=== PATIENT | female | born 1975 | race Caucasian/White ===

== ENCOUNTER 2016-09-27 12:29 | Emergency (ER) | payer MEDICAID ==
[2016-09-27 12:50] VITALS: BP 117/77
== END 2016-09-27 14:01 | disposition left against medical advice (07) ==
LOC: ED 12:29
DX: Z53.21 Procedure and treatment not carried out due to patient leaving prior to being seen by health care provider (principal)

== ENCOUNTER 2017-07-12 23:03 | Emergency (ER) | payer MEDICAID | END 2017-07-12 23:48 | disposition left against medical advice (07) | LOC: ED 23:03 | DX: Z53.21 Procedure and treatment not carried out due to patient leaving prior to being seen by health care provider (principal) ==

== ENCOUNTER 2019-09-01 14:02 | Inpatient (IN) | payer MEDICAID ==
[~2019-09-01] VITALS: Ht 149.9 cm; Wt 42.2 kg
[2019-09-01 14:14] VITALS: Ht 149.9 cm; Wt 42.2 kg
[2019-09-01 17:28] LABS: microscopic required? YES; urine erythrocyte NEGATIVE (NEGATIVE)
[2019-09-01 17:31] LABS: BASOPHIL % 0.4 % (0-2); PLATELET COUNT 268 x10^3mcL (130-400)
[2019-09-01 17:33] LABS: RED CELL DISTRIBUTION WIDTH 15.9 % (11.5-14.5)
[2019-09-01 17:43] LABS: AMPHETAMINE QUAL UR POSITIVE (See below)
[2019-09-01 17:49] LABS: CALCIUM 9.2 mg/dL (8.5-10.1); CARBON DIOXIDE 30.8 mmol/L (21-32); CHLORIDE SERUM 105 mmol/L (98-107); CREATININE SERUM 0.7 mg/dL (0.6-1.0); GFR1 > 60 mL/min; GLUCOSE SERUM 98 mg/dL (74-106); POTASSIUM SERUM 3.9 mmol/L (3.5-5.1); SODIUM SERUM 141 mmol/L (136-145)
[2019-09-01 17:53] LABS: ALBUMIN 4.1 g/dL (3.4-5.0); ALKALINE PHOSPHATASE 44 U/L (46-116); ALT/SGPT 21 U/L (14-59); AST/SGOT 15 U/L (15-37); BILIRUBIN TOTAL 0.72 mg/dL (0.20-1.00); LIPASE 134 IU/L (73-393); TOTAL PROTEIN, SERUM 7.7 g/dL (6.4-8.2)
[2019-09-01 20:21] LABS: CHOLESTEROL/HDL RATIO 2.1; MAGNESIUM 2.1 mg/dL (1.8-2.4); PHOSPHOROUS 3.8 mg/dL (2.5-4.9)
[2019-09-01 20:30] LABS: FREE T4 1.15 ng/dL (0.76-1.46); FREE THYROXINE INDEX 2.8 ug/dL (1.4-4.5); T4(THYROXINE) 7.7 ug/dL (4.7-13.3)
[2019-09-01 20:32] LABS: T3 TOTAL 1.14 ng/mL
[2019-09-01 21:54] VITALS: BP 109/74
[2019-09-02 05:14] VITALS: BP 90/72
[2019-09-02 06:40] LABS: BASOPHIL % 0.2 % (0-2); PLATELET COUNT 212 x10^3mcL (130-400)
[2019-09-02 06:47] LABS: CALCIUM 7.6 mg/dL (8.5-10.1); CARBON DIOXIDE 25.1 mmol/L (21-32); CHLORIDE SERUM 108 mmol/L (98-107); CREATININE SERUM 0.7 mg/dL (0.6-1.0); GFR1 > 60 mL/min; GLUCOSE SERUM 74 mg/dL (74-106); MAGNESIUM 2.2 mg/dL (1.8-2.4); PHOSPHOROUS 2.8 mg/dL (2.5-4.9); SODIUM SERUM 140 mmol/L (136-145)
[2019-09-02 07:34] LABS: RED CELL DISTRIBUTION WIDTH 16.4 % (11.5-14.5)
[2019-09-02 08:22] VITALS: BP 108/45
[2019-09-02 12:02] VITALS: BP 95/48
[2019-09-02] MEDS ORDERED: MIRALAX17 GM PO (14:38)
[2019-09-02 14:41] VITALS: BP 95/48
== END 2019-09-02 15:11 | disposition home or self-care (01) | DRG 247 ==
LOC: ED 14:02 → MU 20:00
PROVIDERS: Emergency Medicine; ADMIT Internal Medicine
DX: K56.600 Partial intestinal obstruction, unspecified as to cause (principal); F12.10 Cannabis abuse, uncomplicated; F15.10 Other stimulant abuse, uncomplicated; F17.290 Nicotine dependence, other tobacco product, uncomplicated; Z68.1 Body mass index [BMI] 19.9 or less, adult; Z86.73 Personal history of transient ischemic attack (TIA), and cerebral infarction without residual deficits; Z88.6 Allergy status to analgesic agent; Z90.49 Acquired absence of other specified parts of digestive tract
CPT/HCPCS: 83880; 84439; 90658; G0378; J2270; J2405; J3535; J7030; Q0092; Q9967